=== PATIENT | male | born 1960 | race Caucasian/White ===

== ENCOUNTER 2025-03-13 07:54 | Outpatient (AMB) | payer BC, SELFPAY ==
[2025-03-13 07:56] VITALS: BP 165/99; TEMP 36.7; BMI 43.6
--- NOTE | 2025-03-13 07:56 | A.PHYSOV_ITS ---
Vital Signs 03/13/25 07:56 Height 6 ft 2 in Weight 340 lb BMI 43.6 BP 165/99 H Temp 98.0 F Intake Visit Reasons: Right Lumbar TFE L5 Intake Note: 64 year old male in office today for his Right L4 Transforaminal Epidural Injection Allergies No Known Allergies Allergy (Verified 03/13/25 07:55) PFSH Surgical History (Updated 03/09/25 @ 16:13 by Bettina Glass [place]) History of cholecystectomy (Unknown) Social History (Updated 03/09/25 @ 16:15 by Bettina Glass [place]) Household Members: Spouse Alcohol intake: current Alcohol intake frequency: does not drink Use of substances other than those prescribed or required for medical reasons: No Office Procedures Procedure Details: Preop diagnosis: Lumbar radiculitis Postop diagnosis: The same After informed consent was obtained, patient was placed on the procedure table in a prone position. Skin over lumbosacral area was prepped and draped in usual sterile manner. Right L5 pedicle was visualized utilizing fluoroscopy. 5 inch 22 gauge spinal needle was introduced percutaneously and advanced towards the pedicle at about 6 o'clock position. Once level of neural foramina was reached, needle placement was verified utilizing 3 cc of Omnipaque contrast solution. Excellent flow through the neural foramina and epidural spread was identified without evidence of vascular uptake. Total volume of 6 cc containing 2 cc of 1% lidocaine, 40 mg of triamcinolone and normal saline solution were injected after negative aspiration for blood and cerebrospinal fluid. Radiation exposure was documented in the chart. Lumbar transforaminal Epidural Steroid Inj- use with FL Gd: 78431 - Single Procedure code (CPT) selection complete Office Meds Kenalog 40 mg/mL suspension for injection Performing Provider: Jim Go DO Performing Location[facility] Administered by: Jim Go DO on 03/13/25 08:00 Dose Route Admin Location Dispensed Lot Number Expiration Date [facility] Account Leader 40 mg epidural 1 mL [id number] [facility] Total Dispensed Waste 1 mL 0 % lidocaine (PF) 10 mg/mL (1 %) injection solution Performing Provider: Jim Go DO Performing Location: [facility] Administered by: Jim Go DO on 03/13/25 08:00 Dose Route Admin Location Dispensed Lot Number Expiration Date [facility] Account Leader 50 mg epidural 5 mL [id number] [place] [facility] Total Dispensed Waste 5 mL 0 % Omnipaque 300 300 mg iodine/mL intravenous solution Performing Provider: Jim Go DO Performing Location: [facility] Administered by: Jim Go DO on 03/13/25 08:00 Dose Route Admin Location Dispensed Lot Number Expiration Date [facility] Account Leader 3 mL epidural 10 mL [id number] [employer] [facility] Total Dispensed Waste 10 mL 70 % Assessment & Plan Assessment & Plan (1) Lumbar radiculitis: Code(s): M54.16 - Radiculopathy, lumbar region Category: Medical Plan: Epidural injection was performed today Orders: Orders AMB Lumbar transforaminal Epidural Steroid Injection Today M54.16 - Radiculopathy, lumbar region FL Gd Lumbar Transforaminal In Today M54.16 - Radiculopathy, lumbar region Coding Level of Care Code Procedure Only Diagnoses Lumbar radiculitis M54.16 CPT Codes Lumbar transforaminal Epidural Steroid I - CPT TRANSFORM: 39808 - Single ([id number])
--- OUTSIDE RECORDS SUMMARY | 2025-03-13 07:57 | XMS_ITS | Clinical Summary ---
Author Organization [facility] Address [address] [place] [address] Care Team Providers Care Disaster Recovery Specialist Name Role Phone Shagufta Cortez MD Primary Care Prov ider Allergies No known active allergies Medications Medication Sig Dispensed Refills Start Date End Date Status propranolol (INDERAL LA) 120 MG 24 hr capsule Take 1 capsule (120 mg total) by mouth daily. 0 03/28/2022 Active diclofenac (VOLTAREN) 75 MG EC tablet Take 1 tablet (75 mg total) by mouth 2 (two) times a day. 0 03/18/2022 Active Family History Medical History Relation Name Comments Diabetes Sister Relation Name Status Comments Sister Social History Tobacco Use Types Packs/Day Years Used Date Smoking Tobacco: Never Assessed Sex and Gender Information Value Date Recorded Sex Assigned at Not on file Gender Identity Not on file Sexual Orientation Not on file Job Start Date Occupation Industry Not on file Not on file Not on file Last Filed Vital Signs Vital Sign Reading Time Taken Comments Blood Pressure - - Pulse - - Temperature - - Respiratory Rate - - Oxygen Saturation - - Inhaled Oxygen Concentration - - Weight 172.4 kg (380 lb) 05/30/2022 2:26 PM EST Height 185.4 cm (6' 1 ) 05/30/2022 2:26 PM EST Body Mass Index 50.13 05/30/2022 2:26 PM EST Plan of Treatment Health Maintenance Due Date Last Done Comments Hepatitis C Screening 1960 COVID-19 Vaccine (#1) 1960 Depression Screening 1972 BMI Counseling 1978 Preventative Health Evaluation 1978 Colon Cancer Screening (Colonoscopy) 2005 Shingrix-Zoster Vaccine (1 of 2) 2010 Influenza Vaccine (#1) 2024 Pneumococcal Vaccine (1 of 1 - PCV) 2025 DTap / Tdap / Td (2 - Td or Tdap) 03/09/2026 016 RSV Adult > 60+ Yrs or Pregn ant (1 - 1-dose 75+ series) 2035 Hepatitis B Vaccines Aged Out No long er eligible based on patient's age to complete this topic Pneumococcal Vaccine Aged Out No long er eligible based on patient's age to complete this topic RSV Ped < 20 months Aged Out No longe r eligible based on patient's age to complete this topic Care Teams Disaster Recovery Specialist Relationship Specialty Start Date End Date Shagufta Cortez MD PCP - General Internal Medicine 05/22/22
--- OUTSIDE RECORDS SUMMARY | 2025-03-13 07:57 | XMS_ITS | Clinical Summary ---
Author Organization [facility] [address] [facility] [address] Address [address] [place] [address] Phone Care Team Providers Care Senior Court Office Assistant Name Role Phone Shagufta Cortez MD Primary Care Prov ider Allergies No known active allergies Medications tadalafiL (CIALIS) 10 mg tablet Take 1 tablet (10 mg total) by mouth 1 (one) time each day if needed for erectile dysfunction. 12 tablet 3 5 12/02/19 26 Active tirzepatide, weight loss, (ZEPBOUND) 12.5 mg/0.5 mL injection Inject 0.5 mL (12.5 mg total) under the skin every 7 (seven) days. 2 mL 2 5 Active propranolol LA (INDERAL LA) 120 mg 24 hr capsule Take 1 capsule (120 mg total) by mouth 1 (one) time each day. Do not crush, chew, or split. 90 capsule 1 5 Active furosemide (LASIX) 20 mg tablet Take 1 tablet (20 mg total) by mouth 1 (one) time each day. 90 each 1 5 Active diclofenac (VOLTAREN) 75 mg EC tablet Take 1 tablet (75 mg total) by mouth 2 (two) times a day. Do not crush, chew, or split. 180 each 1 5 08/31/19 26 Active furosemide (LASIX) 20 mg tablet Take 1 Tablet by mouth daily. 06/21/03/03/20 25 Discontinu ed(Reorder ) diclofenac (VOLTAREN) 75 mg EC tablet Take 1 tablet (75 mg total) by mouth 2 (two) times a day. Do not crush, chew, or split. 180 each 1 03/03/20 25 Discontinu ed(Reorder ) propranolol LA (INDERAL LA) 120 mg 24 hr capsule TAKE 1 CAPSULE(120 MG) BY MOUTH DAILY. DO NOT CRUSH, CHEW, OR SPLIT 90 capsule 5 03/03/20 25 Discontinu ed(Reorder ) Active Problems Problem Noted Date Diagnosed Date Low testosterone level in male 12/15/2024 Cigar smoker 12/01/2024 Morbid obesity (CMS/HCC V24, CMS/HCC V28) 2024 Low energy 12/01/2024 Arthritis of lumbar spine 09/13/2021 Overview (01/28/2024): Mild to moderate degenerative endplate changes at L3-4, L4-5, L5-S1 without loss of height. Mild facet hypertrophy at L4-5 and L5-S1 bilaterally. Bilateral sciatica 09/05/2021 Acute cholecystitis 02/02/2016 Migraines 06/21/2010 Arthritis 08/11/2008 Hypertension 08/11/2008 Encounters Date Type Department Care Team Description 03/03/2025 2:30 PM EST Office [facility] [address] [place] [address] Shagufta Rene MD Primary hypertension (Primary Dx); Migraine without status migrainosus, not intractable, unspecified migraine type 12/23/2024 Telephone [facility] [address] [place] [address] Shagufta Rene MD from Last 3 Months Immunizations Immunization Administration Dates Next Due Tdap Tetanus diptheria acell ular pertussis (Boostrix; Adacel) 7yo and older 03/09/2016 Surgical History Surgery Date Site/Laterality Comments FOOT SURGERY PROCEDURE: [place] UNLISTED PROCEDURE FOOT/TOES; COMMENT: bilateral achilles tendon surgery d/t plantar fasciitis CHOLECYSTECTOMY 12/2015 PROCEDURE: HISTORICAL CHOLECYSTECTOMY Medical History Medical History Date Comments Hypertension DX:Hypertension Arthritis DX:Arthritis Hypertension 08/11/2008 DX:Hypertension Arthritis 08/11/2008 DX:Arthritis Tobacco abuse 05/16/2018 DX:Tobacco abuse Obesity, morbid, BMI 40.0-49 .9 ([facility] V24, [facility] V28) 05/16/2018 DX:Obesity, morbid, BMI 40. 0-49.9 ([facility]) History of cholecystectomy 05/16/2018 DX:Hi story of cholecystectomy Arthritis of lumbar spine 09/13/2021 DX:Art hritis of lumbar spine; COMMENT: Mild to moderate degenerative endplate changes at L3-4, L4-5, L5-S1 without loss of height. Mild facet hypertrophy at L4-5 and L5-S1 bilaterally. Family History Medical History Relation Name Comments No Known Problems Brother 1 Dementia Brother 2 Coronary artery disease Father No Known Problems Maternal Grandfather No Known Problems Maternal Grandmother Coronary artery disease Mother No Known Problems Paternal Grandfather No Known Problems Paternal Grandmother No Known Problems Sister 1 No Known Problems Sister 2 Diabetes Sister 3 htn, kidney dz, [place] at 66 Relation Name Status Comments Brother 1 Alive Brother 2 Alive Father Maternal Grandfather Maternal Grandmother Mother Paternal Grandfather Paternal Grandmother Sister 1 Alive Sister 2 Alive Sister 3 Social History Tobacco Use Types Packs/Day Years Used Date Smoking Tobacco: Some Days Smokeless Tobacco: Never Tobacco Cessation:Ready to Q uit: Not Asked; Counseling Given: Not Answered Alcohol Use Standard Drinks/Week Comments No 0 (1 standard drink = 0.6 oz pur e alcohol) Sex and Gender Information Value Date Recorded Sex Assigned at Not on file Legal Sex Male 3:48 PM EST Gender Identity Not on file Sexual Orientation Not on file Obstetrics History Last Filed Vital Signs Vital Sign Reading Time Taken Comments Blood Pressure 128/73 03/03/2025 2:23 PM EST Pulse 73 03/03/2025 2:23 PM EST Temperature 36.4 C (97.6 F) 03/03/2025 2:23 PM EST Respiratory Rate - - Oxygen Saturation - - Inhaled Oxygen Concentration - - Weight 164 kg (362 lb) 03/03/2025 2:23 PM EST Height 188 cm (6' 2 ) 12/01/2024 1:27 PM EDT Body Mass Index 46.48 12/01/2024 1:27 PM EDT Plan of Treatment Upcoming Encounters Date Type Department Care Team (Late st Contact Info) Description 08/31/2025 3:45 PM EDT Office Visit Adult Medicine [facility] [address] [place] [address] Shagufta Cortez MD [address] [place] [address] Health Maintenance Due Date Last Done Comments Pneumococcal Vaccine: 50+ Years (1 of 2 - PCV) 1979 Depression Screening 04/30/2024 03/05/2024 Hypertension/CHF/CAD Annual BMP Blood Test 12/15/2025 12/15/2024, 07/24/2022 DTaP,Tdap,and Td Vaccines (2 - Td or Tdap) 03/09/2026 03/09/2016 Cholesterol Screening (Lipid Panel) 12/15/2029 12/15/2024, 07/24/2022 Hepatitis C Screening Completed 07/24/2022 COVID-19 Vaccine Discontinued Colorectal Cancer Screening: Colonoscopy Discontinued HIB Vaccines Aged Out No longer eligi ble based on patient's age to complete this topic HIV Screening Discontinued HPV Vaccines Aged Out No longer eligi ble based on patient's age to complete this topic Hepatitis A Vaccines Aged Out No long er eligible based on patient's age to complete this topic Hepatitis B Vaccines Aged Out No long er eligible based on patient's age to complete this topic IPV Vaccines Aged Out No longer eligi ble based on patient's age to complete this topic Influenza Vaccine Discontinued MMR Vaccines Aged Out No longer eligi ble based on patient's age to complete this topic Meningococcal ACWY Vaccine Aged Out N o longer eligible based on patient's age to complete this topic Meningococcal B Vaccine Aged Out No l onger eligible based on patient's age to complete this topic RSV Immunization Adult Patients Discontinued RSV Immunization Patients Under 20 months Aged Out No longer eligible based on patient's age to complete this topic Social Influencers of Health Screening Discontinued Varicella Vaccines Aged Out No longer eligible based on patient's age to complete this topic Zoster Vaccines Discontinued Procedures Procedure Name Priority Date/Time Associated Diagnosis Comments CBC WITH AUTO DIFFERENTIAL Routine 12/15/2024 9:04 AM EDT Migraine without status migrainosus, not intractable, unspecified migraine type COMPREHENSIVE METABOLIC PANEL Routine 12/15/2024 9:04 AM EDT Primary hypertension LIPID PANEL WITH REFLEX TO DIRECT LDL Routine 12/15/2024 9:04 AM EDT Morbid obesity ([facility] V24, [facility] V28) CBC AND DIFFERENTIAL Routine 12/15/2024 9:04 AM EDT Migraine without status migrainosus, not intractable, unspecified migraine type HEMOGLOBIN A1C Routine 12/15/2024 9:04 AM EDT Primary hypertension Morbid obesity ([facility] V24, [facility] V28) Low energy TESTOSTERONE FREE, BIOAVAILABLE AND TOTAL Routine 12/15/2024 9:04 AM EDT Low energy PROSTATE SPECIFIC ANTIGEN SCREEN Routine 12/15/2024 9:04 AM EDT Erectile dysfunction, unspecified erectile dysfunction type HEPATITIS C SCREENING Routine 07/24/2022 from Last 3 Months or Most Recently Relevant to Health Maintenance Results * Prostate specific antigen screen (12/15/2024 9:04 AM EDT) PSA 0.75 0.00 - 4.00 ng/mL LAB CHEMISTRY METHOD 12/15/2024 2:22 PM EDT [facility] Blood Venous blood specimen / Unknown Venipuncture / Unknown 12/15/2024 9:04 AM EDT 12/15/2024 9:04 AM EDT Narrative [facility] - 12/15/2024 2:22 PM EDT The Siemens Advia Centaur Chemiluminescent Immunoassay is used. Results obtained with different assay methods or kits cannot be used interchangeably. Results cannot be interpreted as absolute evidence of the presence or absence of malignant disease. us Johnnie OTERO LAB BLOOD ORDERABLES Final Res ult [facility] [address] [place] [address], [place] [phone] * Lipid panel with reflex to direct LDL (12/15/2024 9:04 AM EDT) Cholesterol 115 0 - 200 mg/dL LAB CHEMISTRY METHOD 12/15/2024 1:46 PM EDT [facility] Triglycerides 93 0 - 150 mg/dL LAB CHEMISTRY METHOD 12/15/2024 1:46 PM EDT [facility] HDL 45 >=40 mg/dL LAB CHEMISTRY METHOD 12/15/2024 1:46 PM EDT [facility] LDL Calculated 51 0 - 100 mg/dL LAB CHEMISTRY METHOD 12/15/2024 1:46 PM EDT [facility] Comment:Estimated LDL Calcul ated using equation: Total cholesterol - HDL cholesterol - (Triglycerides/5) VLDL Cholesterol Jose 18.6 mg/dL LAB CHEMISTRY METHOD 12/15/2024 1:46 PM EDT [facility] Non HDL Chol. (LDL+VLDL) 70 <145 mg/dL LAB CHEMISTRY METHOD 12/15/2024 1:46 PM EDT [facility] Chol/HDL Ratio 2.6 0.0 - 4.4 LAB CHEMISTRY METHOD 12/15/2024 1:46 PM EDT [facility] Blood Venous blood specimen / Unknown Venipuncture / Unknown 12/15/2024 9:04 AM EDT 12/15/2024 9:04 AM EDT Johnnie OTERO LAB BLOOD ORDERABLES Final Res ult [facility] [address] [place] [address], [place] [phone] * (ABNORMAL) Testosterone free, bioavailable and total (12/15/2024 9:04 AM EDT) Testosterone 229 229 - 902 ng/dL LAB CHEMISTRY METHOD 12/15/2024 4:23 PM EDT [facility] Testosterone, Free 4.3(L) 4.6 - 22.4 ng/dL LAB CHEMISTRY METHOD 12/15/2024 4:23 PM EDT [facility] Testosterone, Bioavailable 92(L) 110 - 575 ng/dL LAB CHEMISTRY METHOD 12/15/2024 4:23 PM EDT [facility] Sex Hormone Binding 36.4 See Comment nmol/L LAB CHEMISTRY METHOD 12/15/2024 4:23 PM EDT [facility] Comment: FEMALES: pre-menopausal 10.8 - >180 post-menopausal 23.2 - 159.1 MALES: 21-49 years 14.6 - 94.6 50-89 years 21.6 - 113.1 CHILDREN: No established reference range Over the counter supplements containing high doses of biotin may interfere with this assay. If interference is suspected, patients should be retested after refraining from biotin supplements for 72 hours. Albumin 3.9 3.2 - 5.0 g/dL LAB CHEMISTRY METHOD 12/15/2024 4:23 PM EDT [facility] Blood Venous blood specimen / Unknown Venipuncture / Unknown 12/15/2024 9:04 AM EDT 12/15/2024 9:04 AM EDT us Johnnie OTERO LAB BLOOD ORDERABLES Final Res ult [facility] [address] [place] [address], * CBC auto differential (12/15/2024 9:04 AM EDT) WBC 7.5 4.8 - 10.8 K/[facility] LAB HEMETOLOGY METHOD 12/15/2024 10:59 AM EDT [facility] RBC 5.30 4.50 - 5.50 M/[facility] LAB HEMETOLOGY METHOD 12/15/2024 10:59 AM [facility] Hemoglobin 15.9 13.5 - 17.5 g/dL LAB HEMETOLOGY METHOD 12/15/2024 10:59 AM [facility] Hematocrit 46.2 42.0 - 54.0 % LAB HEMETOLOGY METHOD 12/15/2024 10:59 AM [facility] MCV 87.5 79.0 - 98.0 FL LAB HEMETOLOGY METHOD 12/15/2024 10:59 AM [facility] MCH 30.1 27.0 - 32.0 pcg LAB HEMETOLOGY METHOD 12/15/2024 10:59 AM [facility] MCHC 34.4 32.0 - 37.0 g/dL LAB HEMETOLOGY METHOD 12/15/2024 10:59 AM [facility] RDW 13.4 11.0 - 15.0 % LAB HEMETOLOGY METHOD 12/15/2024 10:59 AM [facility] Platelets 198 130 - 400 K/mcL LAB HEMETOLOGY METHOD 12/15/2024 10:59 AM [facility] MPV 10.0 7.0 - 11.0 FL LAB HEMETOLOGY METHOD 12/15/2024 10:59 AM [facility] NRBC 0.0 <1.0 % LAB HEMETOLOGY METHOD 12/15/2024 10:59 AM [facility] NRBC Absolute 0.00 <0.10 K/mcL LAB HEMETOLOGY METHOD 12/15/2024 10:59 AM [facility] Neutrophils Relative 72.3 % LAB HEMETOLOGY METHOD 12/15/2024 10:59 AM [facility] Lymphocytes Relative 18.8 % LAB HEMETOLOGY METHOD 12/15/2024 10:59 AM [facility] Monocytes Relative 5.8 % LAB HEMETOLOGY METHOD 12/15/2024 10:59 AM EDT [facility] Eosinophils Relative 1.9 % LAB HEMETOLOGY METHOD 12/15/2024 10:59 AM EDT [facility] Basophils Relative 0.9 % LAB HEMETOLOGY METHOD 12/15/2024 10:59 AM EDT [facility] Immature Granulocytes Relative 0.3 % LAB HEMETOLOGY METHOD 12/15/2024 10:59 AM EDT [facility] Neutrophils Absolute 5.45 1.50 - 7.00 K/mcL LAB HEMETOLOGY METHOD 12/15/2024 10:59 AM EDT [facility] Lymphocytes Absolute 1.42 1.00 - 5.00 K/mcL LAB HEMETOLOGY METHOD 12[facility]15[facility]24 10:[facility] Monocytes Absolute 0.44 0.20 - 1.00 K/mcL LAB HEMETOLOGY METHOD 12/15/2024 10:59 AM EDT [facility] Eosinophils Absolute 0.14 0.00 - 0.50 K/mcL LAB HEMETOLOGY METHOD 12/15/2024 10:59 AM EDT [facility] Basophils Absolute 0.07 0.00 - 0.20 K/mcL LAB HEMETOLOGY METHOD 12/15/2024 10:59 AM EDT [facility] Immature Granulocytes Absolute 0.02 0.00 - 0.03 K/mcL LAB HEMETOLOGY METHOD 12/15/2024 10:59 AM EDT [facility] Blood Venous blood specimen / Unknown Venipuncture / Unknown 12/15/2024 9:04 AM EDT 12/15/2024 9:04 AM EDT us Johnnie OTERO LAB BLOOD ORDERABLES Final Res ult [facility] [address] [place] [address], [place] [phone] * Hemoglobin A1c (12/15/2024 9:04 AM EDT) Pathologist [facility] Hemoglobin A1C 4.9 <6.5 % LAB CHEMISTRY METHOD 12/15/2024 1:23 PM EDT [facility] Mean Bld Glu Estim. 94 mg/dL LAB CHEMISTRY METHOD 12/15/2024 1:23 PM EDT [facility] Blood Venous blood specimen / Unknown Venipuncture / Unknown 12/15/2024 9:04 AM EDT 12/15/2024 9:04 AM EDT Johnnie OTERO LAB BLOOD ORDERABLES Final Res ult [facility] [address] [place] [address], * Comprehensive metabolic panel (12/15/2024 9:04 AM EDT) [facility] Sodium 140 133 - 145 mmol/L LAB CHEMISTRY METHOD 12/15/2024 1:46 PM T [facility] Potassium 4.2 3.5 - 5.5 mmol/L LAB CHEMISTRY METHOD 12/15/2024 1:46 PM [facility] Chloride 108 96 - 110 mmol/L LAB CHEMISTRY METHOD 12/15/2024 1:46 PM [facility] CO2 27 21 - 32 mmol/L LAB CHEMISTRY METHOD 12/15/2024 1:46 PM T [facility] Anion Gap 5 3 - 11 LAB CHEMISTRY METHOD 12/15/2024 1:46 PM [facility] Glucose 92 70 - 100 mg/dL LAB CHEMISTRY METHOD 12/15/2024 1:46 PM [facility] BUN 17 5 - 25 mg/dL LAB CHEMISTRY METHOD 12/15/2024 1:46 PM [facility] Creatinine 1.07 0.70 - 1.30 mg/dL LAB CHEMISTRY METHOD 12/15/2024 1:46 PM EDT [facility] eGFR 77 >=60 mL/min/1. 73m2 LAB CHEMISTRY METHOD 12/15/2024 1:46 PM T [facility] Comment:Calculation based on the Chronic Kidney Disease Epidemiology Collaboration (CKD-EPI) equation refit without adjustment for race. BUN/Creatinine Ratio 15.9 LAB CHEMISTRY METHOD 12/15/2024 1:46 PM EDT [facility] Calcium 9.2 8.5 - 10.5 mg/dL LAB CHEMISTRY METHOD 12/15/2024 1:46 PM [facility] AST (SGOT) 22 10 - 42 unit/L LAB CHEMISTRY METHOD 12/15/2024 1:46 PM [facility] ALT (SGPT) 32 10 - 60 unit/L LAB CHEMISTRY METHOD 12/15/2024 1:46 PM [facility] Alkaline Phosphatase 102 42 - 121 unit/L LAB CHEMISTRY METHOD 12/15/2024 1:46 PM [facility] Total Protein 7.0 6.0 - 8.0 g/dL LAB CHEMISTRY METHOD 12/15/2024 1:46 PM [facility] Albumin 3.9 3.2 - 5.0 g/dL LAB CHEMISTRY METHOD 12/15/2024 1:46 PM [facility] Total Bilirubin 0.8 0.0 - 1.4 mg/dL LAB CHEMISTRY METHOD 12/15/2024 1:46 PM [facility] Blood Venous blood specimen / Unknown Venipuncture / Unknown 12/15/2024 9:04 AM EDT 12/15/2024 9:04 AM EDT us Johnnie OTERO LAB BLOOD ORDERABLES Final Res ult [facility] [address] [place] [address], * Hepatitis C Screening (07/24/2022) Hepatitis C Screening abstracted us Historical Provider HEALTH MAINTENANCE Final Result from Last 3 Months or Most Recently Relevant to Health Maintenance Insurance [place]) Care Teams Senior Court Office Assistant Relationship Specialty Start Date End Date Shagufta Cortez MD [address] [place] [id number] PCP - General 08/10/08
== END 2025-03-13 08:14 | disposition home or self-care (01) ==
LOC: HO.HPHYS 07:54
PROVIDERS: Visit Provider Physical Medicine & Rehabilitation
DX: M54.16 Radiculopathy, lumbar region (principal)
CPT/HCPCS: 64483

== ENCOUNTER 2025-03-13 07:54 | Outpatient (REF) | payer BC, SELFPAY | END 2025-03-13 07:55 | disposition home or self-care (01) | LOC: HO.HPHYSR 07:54 | PROVIDERS: Visit Provider Physical Medicine & Rehabilitation | DX: M54.16 Radiculopathy, lumbar region (principal) | CPT/HCPCS: 64483; J2003; J3301; Q9967 ==

== ENCOUNTER 2025-04-02 14:17 | Outpatient (AMB) | payer BC, SELFPAY ==
--- NOTE | 2025-04-02 14:20 | A.PHYSOV_ITS ---
Vital Signs 04/02/25 14:21 Height 6 ft 2 in Weight 340 lb BMI 43.6 Intake Visit Reasons: F/U after injection 03/13/2025 Intake Note: Patient is a 64 year old male in office after a right L5 transforaminal epidural injection 03/13/25. Submarine Operator Required: No Allergies No Known Allergies Allergy (Verified 04/02/25 14:23) HPI Comments Details: History of Present Illness The patient is a 64 year old male presenting for a follow-up visit to assess his response to a recent spinal steroid injection for chronic back pain. Patient underwent right L5 TFESI on 03/13/2025. He reports 80% reduction of his pain. His primary complaint was back pain, which he described as a sharp, driving pain prior to the procedure, with minimal associated leg pain. Following the recent injection, the patient reports approximately 80% improvement. The pain has become a more tolerable, dull ache and is primarily noticeable in the mornings before he starts moving. The pain relief has allowed him to increase his activity, feel more flexible, and improve his mobility. He is performing exercises in the morning and at night, with plans to increase this activity gradually. He reports a prior injection at another facility which did not provide relief and was thought to have been administered in a different location. Pain Description - Location: The pain is primarily located in the back, with the patient stating he did not have significant leg pain issues. - Quality: The pain is currently a dull ache, which is a change from its previous character of a sharp, driving pain. - Severity: The patient reports feeling about 80% better following his recent injection. - Timing: Symptoms are worse in the mornings and improve with movement. - Functional Impact: The pain relief has allowed for increased activity, improved mobility, and enhanced flexibility. Procedure: Right L4-5, L5-S1 facet injection 01/01/2022 no relief based 8 pain management Right L5 TFESI 03/13/2025 80% reduction of his pain [facility] Surgical History History of cholecystectomy (Unknown) Social History Household Members: Spouse Alcohol intake: current Alcohol intake frequency: does not drink Review of Systems Narrative Review of Systems - Musculoskeletal: Reports chronic back pain, now improved to a dull ache. - Reports morning stiffness which improves with movement. - Reports improved flexibility and mobility. - Neurological: Reports an occasional dull sensation in the leg but denies it was a significant issue. Physical Exam Exam Exam: Physical Exam Lumbar Spine: Examination of his lumbar spine, there is no visible swelling or deformity. He is tender to lower lumbar facets. He is otherwise nontender. He has full range of motion of his lumbar spine. He does have an increase in pain with facet loading. Special Tests: Lhermittes sign was negative Heel Toe walk is normal Left straight leg raise: Negative Right straight leg raise: Positive right Special tests Cris test is negative Ganslen's test is negative SI Joint compression test negative Hermelindo test negative Piriformis stretch is negative Lower Extremities: Full range of motion bilateral lower extremities. No calf pain or edema. Neuro: Sensation: Intact to lower extremities bilaterally Strength L2 (Psoas): 5/5 on the left and 5/5 on the right. L3 (Quads): 5/5 on the left and 5/5 on the right. L4 (Ant tibialis): 5/5 on the left and 5/5 on the right. L5 (EHL) 5/5 on the left and 5/5 on the right. S1 (Gastroc): 5/5 on the left and 5/5 on the right. DTR L4: (Patellar) Left 2 Right 2 S1: (Achilles) Left 2 Right 2 Babinski Downgoing No pathologic clonus. No involuntary movement. Vital Signs: BMI result Body Mass Index 43.6 Assessment & Plan Assessment & Plan (1) Lumbar radiculopathy: Code(s): M54.16 - Radiculopathy, lumbar region Category: Medical (2) Lumbar spondylosis: Code(s): M47.816 - Spondylosis without myelopathy or radiculopathy, lumbar region Category: Medical Plan Pain Management - Analgesia: The patient reports approximately 80% pain relief from a recent spinal steroid injection, with the pain quality changing from sharp to a more tolerable dull ache. - Affect: He reports being happy with the outcome of the injection. - Activities of Daily Living: He has been able to increase his physical activity, including walking, due to pain reduction. - He has better mobility and flexibility and is performing exercises in the morning and evening. - Adverse Effects: No adverse effects from the injection were reported. - Aberrant Drug Related Behaviors: No aberrant behaviors were noted or discussed. Plan Patient was informed and verbally consented to the use of an ambient scribe for clinic note documentation during this visit. 1. Chronic Back Pain The patient has experienced significant relief from a recent long-acting spinal steroid injection, with an estimated 80% improvement in his chronic back pain. He will continue to monitor his symptoms, with the understanding that the injection's effects may last 3 to 6 months. He is encouraged to continue his current exercise regimen and activities such as walking, biking, or swimming, while self-governing his activity level to avoid exacerbating his pain. He was advised that the injections are repeatable approximately every four months, up to three times per year, and he should call the office if his pain returns to a level where he feels another injection is warranted. Discussion Notes I discussed with the patient that the long-acting steroid medication placed in his spine is intended to decrease inflammation. I explained that these injecti ons are not a cure but are aimed at reducing his pain level to improve his quality of life and allow him to live with the problem. We are hopeful that the effects will last for three to six months. I informed him that the injections can be repeated about every four months, or three times a year. I instructed him that the first step is to call our office if his pain returns to a point where he feels another injection is needed. I encouraged him to be active with activities like walking, biking, and swimming, but to govern himself accordingly and not do anything he wouldn't normally do with his back condition. The patient expressed his satisfaction with the outcome and his intention to monitor his condition, possibly considering another injection in late winter. Patient Instructions - Continue with your morning and nightly exercises to help with flexibility. - We encourage you to be active with activities like walking, biking, and swimming. - Be mindful of your back condition and avoid activities that you know might cause pain. - The pain relief from this injection is expected to last about 3 to 6 months. - If your pain returns and you feel you need another injection, please call our office to discuss it. - These injections can be repeated about every four months if needed. Coding Level of Care Code Tele Est Pt Level 3 (57814) Diagnoses Lumbar radiculopathy M54.16 Lumbar spondylosis M47.816
[2025-04-02 14:21] VITALS: BMI 43.6
--- OUTSIDE RECORDS SUMMARY | 2025-04-02 19:53 | XMS_ITS | Clinical Summary ---
Author Organization [facility] Prior to 09/27/24 Address [address] [place] [address] Care Team Providers Care Atm Servicer Name Role Phone Shagufta Cortez MD Primary [...] age to complete this topic Care Teams Atm Servicer Relationship Specialty Start Date End Date Shagufta Cortez MD PCP - General Internal Medicine 05/22/22
--- OUTSIDE RECORDS SUMMARY | 2025-04-02 19:53 | XMS_ITS | Clinical Summary ---
Author Organization [facility] [address] [facility] l[facility] Address [address] [place] [address] Phone Care Team Providers Care Denitrator Name Role Phone Shagufta Cortez MD Primary Care Prov ider Allergies No known active allergies Medications tadalafiL (CIALIS) 10 mg tablet Take 1 tablet (10 mg total) by mouth 1 (one) time each day if needed for erectile dysfunction. 12 tablet 3 12/01/2024 12/02/19 26 Active tirzepatide, weight loss, (ZEPBOUND) 12.5 mg/0.5 mL injection Inject 0.5 mL (12.5 mg total) under the skin every 7 (seven) days. 2 mL 2 02/10/2025 Active propranolol LA (INDERAL LA) 120 mg 24 hr capsule Take 1 capsule (120 mg total) by mouth 1 (one) time each day. Do not crush, chew, or split. 90 capsule 1 03/03/2025 Active furosemide (LASIX) 20 mg tablet Take 1 tablet (20 mg total) by mouth 1 (one) time each day. 90 each 1 03/03/2025 Active diclofenac (VOLTAREN) 75 mg EC tablet Take 1 tablet (75 mg total) by mouth 2 (two) times a day. Do not crush, chew, or split. 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 Mild facet hypertrophy at L4-5 and L5-S1 bilaterally. Bilateral sciatica 09/05/2021 Acute cholecystitis 02/02/2016 Migraines 06/21/2010 Arthritis 08/11/2008 Hypertension 08/11/2008 Encounters Date Type Department Care Team Description 03/03/2025 2:30 PM EST Office Visit Adult Medicine [address] [phone] Shagufta Rene MD Primary hypertension (Primary Dx); Migraine without status migrainosus, not intractable, unspecified migraine type from Last 3 Months Immunizations Immunization Administration Dates Next Due Tdap Tetanus diptheria acell ular pertussis (Boostrix; Adacel) 7yo and older 03/09/2016 Surgical History Surgery Date Site/Laterality Comments FOOT SURGERY PROCEDURE: MS UNLISTED PROCEDURE FOOT/TOES; COMMENT: bilateral achilles tendon surgery d/t plantar fasciitis CHOLECYSTECTOMY 12/2015 PROCEDURE: HISTORICAL CHOLECYSTECTOMY Medical History Medical History Date Comments Hypertension DX:Hypertension Arthritis DX:Arthritis Hypertension 08/11/2008 DX:Hypertension Arthritis 08/11/2008 DX:Arthritis Tobacco abuse 05/16/2018 DX:Tobacco abuse Obesity, morbid, BMI 40.0-49 .9 ([facility] V24, [facility] V28) 05/16/2018 DX:Obesity, morbid, BMI 40. 0-49.9 ([facility]) History of cholecystectomy 05/16/2018 DX:Hi story of [...] 2 Diabetes Sister 3 htn, kidney dz, [place] at 66 Relation Name Status Comments Brother [...] 3:45 PM EDT Office Visit Adult Medicine [address] [phone] Shagufta Cortez MD [address] [place] [address] Health Maintenance Due Date Last Done Comments [...] Procedure Name Priority Date/Time Associated Diagnosis Comments COMPREHENSIVE METABOLIC PANEL Routine 12/15/2024 9:04 AM EDT Primary hypertension LIPID PANEL WITH REFLEX TO DIRECT LDL Routine 12/15/2024 9:04 AM EDT Morbid obesity (CMS/HCC V24, CMS/HCC V28) HEPATITIS C SCREENING Routine 07/24/2022 from Last 3 Months or Most Recently Relevant to Health Maintenance Results * Lipid panel with reflex to direct [...] 4.4 LAB CHEMISTRY METHOD 12/15/2024 1:46 PM T [facility] Blood Venous blood specimen / Unknown Venipuncture / Unknown 12/15/2024 9:04 AM EDT 12/15/2024 9:04 AM EDT us Johnnie OTERO LAB BLOOD ORDERABLES Final Res ult [facility] [address] [place] [address], * Comprehensive metabolic panel (12/15/2024 9:04 AM EDT) Sodium 140 133 - 145 mmol/L LAB CHEMISTRY METHOD 12/15/2024 1:46 PM EDT [facility] Potassium 4.2 3.5 - 5.5 mmol/L LAB CHEMISTRY METHOD 12/15/2024 1:46 PM [facility] Chloride 108 96 - 110 mmol/L LAB CHEMISTRY METHOD 12/15/2024 1:46 PM [facility] CO2 27 21 - 32 mmol/L LAB CHEMISTRY METHOD 12/15/2024 1:46 PM [facility] Anion Gap 5 3 - 11 LAB CHEMISTRY METHOD 12/15/2024 1:46 PM [facility] Glucose 92 70 - 100 mg/dL LAB CHEMISTRY METHOD 12/15/2024 1:46 PM [facility] BUN 17 5 - 25 mg/dL LAB CHEMISTRY METHOD 12/15/2024 1:46 PM [facility] Creatinine 1.07 0.70 - 1.30 mg/dL LAB CHEMISTRY METHOD 12/15/2024 1:46 PM [facility] eGFR 77 >=60 mL/min/1. 73m2 LAB CHEMISTRY METHOD 12/15/2024 1:46 PM [facility] Comment:Calculation based on the Chronic Kidney Disease Epidemiology Collaboration (CKD-EPI) equation refit without adjustment for race. BUN/Creatinine Ratio 15.9 LAB CHEMISTRY METHOD 12/15/2024 1:46 PM [facility] Calcium 9.2 8.5 - 10.5 mg/dL LAB CHEMISTRY METHOD 12/15/2024 1:46 PM [facility] AST (SGOT) 22 10 - 42 unit/L LAB CHEMISTRY METHOD 12/15/2024 1:46 PM [facility] ALT (SGPT) 32 10 - 60 unit/L LAB CHEMISTRY METHOD 12/15/2024 1:46 PM [facility] Alkaline Phosphatase 102 42 - 121 unit/L LAB CHEMISTRY METHOD 12/15/2024 1:46 PM [facility] Total Protein 7.0 6.0 - 8.0 g/dL LAB CHEMISTRY METHOD 12/15/2024 1:46 PM [facility] Albumin 3.9 3.2 - 5.0 g/dL LAB CHEMISTRY METHOD 12/15/2024 1:46 PM [facility] Total Bilirubin 0.8 0.0 - 1.4 mg/dL LAB CHEMISTRY METHOD 12/15/2024 1:46 PM [facility] Blood Venous blood specimen / Unknown Venipuncture / Unknown 12/15/2024 9:04 AM EDT 12/15/2024 9:04 AM EDT Johnnie OTERO LAB BLOOD ORDERABLES Final Res ult [facility] [address] [place] [address], * Hepatitis C Screening (07/24/2022) Hepatitis C Screening abstracted Historical Provider HEALTH MAINTENANCE Final Result from Last 3 Months or Most Recently Relevant to Health Maintenance Insurance [employer] Care Teams Denitrator Relationship Specialty Start Date End Date Shagufta Cortez MD [address] [place] [id number] PCP - General 08/10/08
--- OUTSIDE RECORDS SUMMARY | 2025-04-02 19:53 | XMS_ITS ---
Author Name [facility] Organization Unknown Care Team Organization Name Specialty Phone Email Start Date End Da [facility] 12/17/2024
== END 2025-04-02 14:48 | disposition home or self-care (01) ==
LOC: HO.HPHYS 14:17
PROVIDERS: Visit Provider Physician Assistant
DX: M54.16 Radiculopathy, lumbar region (principal); M47.816 Spondylosis without myelopathy or radiculopathy, lumbar region
CPT/HCPCS: 99213